=== PATIENT | female | born 1995 | race African-American/Black ===

== ENCOUNTER 2017-02-04 10:01 | Outpatient (CLI) | payer OTHER ==
[~2017-02-04] VITALS: Ht 149.9 cm; Wt 65.9 kg
[2017-02-04 10:58] LABS: EOSINOPHIL (%) 0.5 % (0-5); HEMATOCRIT 37.5 % (36.0-46.0); IMMATURE GRANULOCYTE (%) 0.7 % (0.0-0.7); IMMATURE GRANULOCYTE COUNT 0.1 K/uL; INSTRUMENT ABS NEUTROPHIL CT 5.4 K/uL; LYMPHOCYTE COUNT 1.2 K/uL (1.0-2.8); MCHC 31.7 G/DL (30.0-36.0); MCV 82.1 FL (83-99); MEAN PLAT.VOLUME 10.1 uM^3 (9.5-12.4); MONOCYTE (%) 10.8 % (3-12); MONOCYTE COUNT 0.8 K/uL (0-0.8); NEUTROPHIL (%) 71.4 % (45-76); NEUTROPHIL COUNT 5.4 K/uL (1.8-6.4); PLATELET COUNT 200 K/uL (156-360); RBC DIS.WIDTH-CV 13.2 % (11.8-14.6); RBC DIS.WIDTH-SD 39.5 % (39-53); RED BLOOD COUNT 4.57 M/uL (3.80-5.20); WHITE BLOOD COUNT 7.5 K/uL (4.1-10.2)
[2017-02-04 11:12] LABS: CHLORIDE 106 mEq/L (99-109)
[2017-02-04 11:13] LABS: POTASSIUM 3.4 mEq/L (3.7-5.4); SODIUM 139 mEq/L (136-147)
[2017-02-04 11:15] LABS: GLUCOSE 74 mg/dL (70-99)
[2017-02-04 11:16] LABS: ANION GAP 10 MEQ/L (2-14)
[2017-02-04 11:17] LABS: TOTAL BILIRUBIN 0.2 mg/dL (0.0-1.0)
[2017-02-04 11:18] LABS: ALKALINE PHOSPHATASE 150 IU/L (3-129)
[2017-02-04 11:19] LABS: GFR ESTIMATE (CALCULATED) > 59 mL/min/
[2017-02-04 11:20] LABS: DIRECT BILIRUBIN 0.1 mg/dL (0.0-0.3); UREA NITROGEN (BUN) 7 mg/dL (9-23)
[2017-02-04 11:22] LABS: LIPASE 26 U/L (1.0-51.0)
[2017-02-04 12:19] LABS: ADD MIUA? YES; BILIRUBIN NEGATIVE; BLOOD NEGATIVE; COLOR YELLOW ((YELLOW)); GLUCOSE (STRIP) NEGATIVE; KETONES 5; LEUKOCYTES TRACE; NITRITE NEGATIVE; PROTEIN (STRIP) NEGATIVE; UROBILINOGEN 0.2 MG/DL (0.2-1.0)
[2017-02-04 12:29] LABS: BACTERIA RARE /HPF; CALCIUM OXALATE CRYSTALS 2+ /HPF; EPITHELIAL CELLS RARE /HPF; MUCUS TRACE /LPF; RED BLOOD CELLS 0-5 /HPF (0-5); UCUL ADDED? NO; WHITE BLOOD CELLS 0-5 /HPF (0-5)
[2017-02-04 14:23] VITALS: BP 109/68
== END 2017-02-04 17:27 | disposition home or self-care (01) ==
LOC: LDRP-OP 10:01 → EME 10:01 → EDSTATUS 14:16 → 2WEST 14:17
PROVIDERS: Personal Emergency Response Attendant
DX: O26.893 Other specified pregnancy related conditions, third trimester (principal); Z3A.34 34 weeks gestation of pregnancy; O99.343 Other mental disorders complicating pregnancy, third trimester; F41.9 Anxiety disorder, unspecified; R10.9 Unspecified abdominal pain; N13.39 Other hydronephrosis
CPT/HCPCS: 59025; 76705; 76770; 80048; 80076; 81003; 83690; 85025; 99281; 99284; G0378; J7030; J7120

== ENCOUNTER 2017-02-22 00:02 | Inpatient (IN) | payer OTHER ==
[~2017-02-22] VITALS: Ht 149.9 cm; Wt 65.8 kg
[2017-02-22] VITALS (10 sets, daily range): BP systolic 100–123; BP diastolic 58–83
[2017-02-22 01:21] LABS: EOSINOPHIL COUNT 0.1 K/uL (0-0.3); HEMATOCRIT 36.2 % (36.0-46.0); IMMATURE GRANULOCYTE (%) 1.2 % (0.0-0.7); IMMATURE GRANULOCYTE COUNT 0.1 K/uL; INSTRUMENT ABS NEUTROPHIL CT 5.1 K/uL; MCH 25.4 PG (29.0-34.0); MCV 79.4 FL (83-99); MEAN PLAT.VOLUME 9.6 uM^3 (9.5-12.4); MONOCYTE (%) 15.4 % (3-12); MONOCYTE COUNT 1.3 K/uL (0-0.8); NEUTROPHIL (%) 59.1 % (45-76); NEUTROPHIL COUNT 5.1 K/uL (1.8-6.4); PLATELET COUNT 251 K/uL (156-360); RBC DIS.WIDTH-CV 13.2 % (11.8-14.6); RBC DIS.WIDTH-SD 37.8 % (39-53); RED BLOOD COUNT 4.56 M/uL (3.80-5.20); WHITE BLOOD COUNT 8.6 K/uL (4.1-10.2)
[2017-02-22 01:58] LABS: DRSB INTERNAL CONTROL PASS; PROBE CHECK PASS; SPECIMEN PROCESSING CONTROL PASS
[2017-02-22] MEDS ORDERED: MOTRIN800 MG PO (02:56)
[2017-02-22] MEDS ORDERED: PRENATAL TABLE1 EAC3 PO (06:29)
[2017-02-22] MEDS ORDERED: TRAZODONE HCL50 MG PO (06:30)
[2017-02-22] MEDS ORDERED: METFORMIN HCL500 M4 PO (06:31)
[2017-02-23 07:27] VITALS: BP 106/62
[2017-02-23 15:02] VITALS: BP 115/64
[2017-02-23 22:32] VITALS: BP 110/67
[2017-02-24 07:39] VITALS: BP 97/53
[2017-02-24 15:58] VITALS: BP 127/83
== END 2017-02-24 18:31 | disposition home or self-care (01) | DRG 775 ==
LOC: LDRP-OP 00:02 → 2WEST 00:03 → LDRP-OP 04-18 11:29
PROVIDERS: Nurse Practitioner
PROC: 00HU33Z Insertion of Infusion Device into Spinal Canal, Percutaneous Approach (ICD-10-PCS; principal; 2017-02-22)
PROC: 3E0R3CZ (ICD-10-PCS; 2017-02-22)
PROC: 10E0XZZ Delivery of Products of Conception, External Approach (ICD-10-PCS; 2017-02-22)
PROC: 0HQ9XZZ Repair Perineum Skin, External Approach (ICD-10-PCS; 2017-02-22)
DX: O60.14X0 Preterm labor third trimester with preterm delivery third trimester, not applicable or unspecified (principal); O42.913 Preterm premature rupture of membranes, unspecified as to length of time between rupture and onset of labor, third trimester; O62.3 Precipitate labor; O99.344 Other mental disorders complicating childbirth; F41.9 Anxiety disorder, unspecified; O70.0 First degree perineal laceration during delivery; Z3A.36 36 weeks gestation of pregnancy; Z37.0 Single live birth
CPT/HCPCS: 85025; 87081; 87653; C1755; J7120